=== PATIENT | female | born 1980 | race Caucasian/White ===

== ENCOUNTER 2024-03-01 20:53 | Emergency (ER) | payer OTHER, SELFPAY ==
[2024-03-01 20:56] VITALS: BP 142/92
[2024-03-01 21:15] LABS: % Eosinophils 10.8 % (0-6); % Immature Granulocytes 0.2 % (0-0.5); % Lymphocytes 45.9 % (20.5-51.1); % Monocytes 8.3 % (1.7-9.3); % Neutrophils 33.8 % (42.2-75.2); Absolute Basophils 0.1 10^3/uL (0-0.2); Absolute Eosinophils 0.6 10^3/uL (0-0.7); Absolute Lymphocytes 2.4 10^3/uL (1.2-3.4); Absolute Monocytes 0.4 10^3/uL (0.1-0.6); Absolute Neutrophils 1.8 10^3/uL (1.4-6.5); Hematocrit 40.2 % (37.0-47.0); Hemoglobin 13.4 g/dL (12.0-16.0); Mean Corp Hgb Conc. 33.3 g/dL (33.0-37.0); Mean Corpuscular Volume 90.1 fL (81.0-99.0); Mean Platelet Volume 9.1 fL (7.4-10.4); Nucleated Red Blood Cells % 0 %; Platelet Count 314 10^3/uL (130-400); Red Blood Cell Count 4.46 10^6/uL (4.20-5.40); Red Cell Dist. Width 13.4 % (11.5-14.5); White Blood Cell Count 5.2 10^3/uL (4.8-10.8)
[2024-03-01 21:32] LABS: HCG, Serum Qualitative Screen Negative
[2024-03-01 21:36] LABS: ALT (SGPT) 24 U/L (0-35); AST (SGOT) 36 U/L (14-36); Albumin 4.4 g/dl (3.5-5.0); Alkaline Phosphatase 69 U/L (38-126); Blood Urea Nitrogen 6 mg/dl (7-17); Calcium 9.5 mg/dl (8.4-10.2); Carbon Dioxide 25 mmol/L (22-30); Chloride 103 mmol/L (98-107); Glucose 95 mg/dl (70-99); Potassium 3.9 mmol/L (3.5-5.1); Sodium 137 mmol/L (135-145); Total Bilirubin 1.1 mg/dl (0.2-1.3); Total Protein 6.9 g/dl (6.3-8.2); eGFR > 60.00
--- NOTE | 2024-03-01 22:51 | ED.GENMED ---
History of Present Illness
General
Chief Complaint: Withdrawal Symptoms
Source: patient
Exam Limitations: none
Time Seen by Provider: 03/01/24 22:23
Nursing documentation reviewed up to this point in time: agreed with
Travel History
Have you had any contact with someone who has COVID-19?: No
Do you have any symptoms of coronavirus? Fever > 100 degrees, chills, cough, shortness of breath, sore throat, loss of taste or smell, muscle aches, or headache?: No
History of Present Illness
History of Present Illness:
This is a 43-year-old woman who has longstanding history of generalized anxiety disorder, has been maintained on Klonopin for many years. She follows with psychiatry services at [facility].
Patient states she is maintained on Klonopin 1 mg twice daily and according to PDMP she receives prescriptions for Klonopin 1 mg tablets, number 30 tablets every 3 weeks with last prescription on PDMP January 31.
Patient states she ran out of her Klonopin just 3 days ago and her next appointment with her psychiatrist at [facility] is March 14.
She states that it has been many years since she inadvertently ran out of her Klonopin and she did call her psychiatrist office today and a prescription was planned to be called in for her but then states she was told according to policy, the
prescription was being reviewed by a equipment records supervisor.
She denies drug or alcohol use.
She admits to feeling somewhat anxious, mildly achy but no loss of consciousness, no fever no chills, no nausea or vomiting, no diarrhea nor constipation.
Review of records reveals only 1 previous ED visit for similar complaint December 2020.
Past History
Past History
ED Past Medical History: HTN, Psychiatric (anxiety, ADHD, Depression.) and Other (IBS, chronic gallbladder infection, biliary drain)
ED Past Surgical History: Gynecological (D&E), Orthopedic (R knee surg) and Other (cholecystotomy tube)
Social History
Tobacco: Smoker
Alcohol: None
Drug: Marijuana
Personal: Single
Living: alone
Employment: Not employed
Family History
Family History: CAD
Phy Exam
Physical Exam
Physical Exam:
GENERAL: 43-year-old woman appears her stated age, awake and alert, very minimally anxious but easily communicative. Normal speech pattern.
EYE: anicteric
NECK: Supple, nontender, no meningismus, no significant adenopathy.
ENT: oral mucosa is moist. No rhinorrhea.
CARDIAC: Regular rate and rhythm. no murmur.
LUNGS: Clear breath sounds bilaterally, no acute respiratory distress, no wheezes/rales/rhonchi
ABDOMEN: Soft, nondistended, without focal tenderness, normoactive BS.
NEUROLOGICAL: Alert and oriented x3, no focal neuro deficits. No tremor. Gait is harding and steady.
SKIN: Warm and dry, normal color, skin intact. No rash.
MUSCULOSKELETAL: No C/C/E. peripheral pulses are full and equal b/l. No palpable tenderness.
PSYCH: Mildly anxious. Easily communicative.
Course
Orders/Labs/Results
Orders:
Orders
03/01/24 20:59
Test Result ONCE
03/01/24 21:03
Complete Blood Count/With Diff Urgent
Comprehensive Metabolic Panel Urgent
HCG, Serum Qualitative Screen Urgent
03/01/24 22:50
Clonazepam [Klonopin] 1 mg PO NOW STA
Abnormal Lab Results
03/01/24
21:03
Neutrophils % 33.8 L %
(42.2-75.2)
Eosinophils % 10.8 H %
(0-6)
BUN 6 L mg/dl
(7-17)
03/01/24 21:03
03/01/24 21:03
Vital Signs
Initial and Last Documented VS:
Initial Vital Signs
Temp Pulse Resp BP Pulse Ox
98.0 F 70 16 142/92 99
03/01/24 20:56 03/01/24 20:56 03/01/24 20:56 03/01/24 20:56 03/01/24 20:56
Last Documented Vital Signs
Temp Pulse Resp BP Pulse Ox
98.0 F 70 16 142/92 99
03/01/24 20:56 03/01/24 20:56 03/01/24 20:56 03/01/24 20:56 03/01/24 20:56
MDM/Problems Addressed
Differential Diagnosis Includes:
Patient presents with mild benzodiazepine withdrawal after inadvertently running out of her Klonopin 3 days ago.
Follows regularly with [facility] psychiatric services.
PDMP consistent with patient's history and there is no evidence of additional/early klonopin prescriptions.
Labs are unremarkable.
Clinical exam is unremarkable. No evidence of toxidrome nor significant withdrawal symptomatology.
Will give a one-time dose of Klonopin now and I have offered a short prescription for 10 pills to get her through the weekend and early next week with plan for prompt follow-up with her psychiatrist/telephone call to psychiatrist on Monday.
Patient agreeable with this plan, appreciative as well, and she plans to take Klonopin just once daily to help her get through till her next appointment.
Chronic conditions affecting care: Psychiatric illness
*Pulse Oximetry
Patient hypoxic: no
*Critical Care Note
Total Time (30-74mins, 75-104mins- exclusive of procedures): Not Applicable
ED Attending Note
-
Portions of this chart may have been created with voice recognition software.� Occasional wrong word or��sound alike� substitutions may have occurred due to the inherent limitations of voice recognition software.
Discharge Plan
Departure
Patient Disposition: Home (Routine Discharge)
Date of Disposition: 03/01/24
Time of Disposition: 22:53
Patient with high blood pressure during this ER visit?: No
Discharge Problem:
mild benzodiazepine withdrawal, JUDITH (generalized anxiety disorder)
Instructions: Anxiety, Adult (DC), Prescription Benzodiazepine Use Disorder ED
Prescriptions:
New
clonazepam [Klonopin] 1 mg tablet
1 mg PO DAILY Qty: 10 0RF
No Action
clonazepam 1 MG tablet
1 mg PO BID Qty: 8 0RF
Patient Comments:
08/05/2021: last filled 06/27/21, 60 tabs for 30 days from [facility]#[id number]
docusate sodium 100 MG capsule
100 mg PO BIDPRN PRN (Reason: constipation)
fluoxetine 20 MG capsule
40 mg PO DAILY Qty: 60 0RF
lamotrigine [Lamictal] 200 MG tablet
200 mg PO DAILY
quetiapine [Seroquel] 200 MG tablet
200 mg PO BID
oxycodone 5 MG tablet
5 mg PO Q4HPRN PRN (Reason: moderate pain)
Patient Comments:
08/05/2021: last filled 07/09/21, 20 tabs for 4 days from [facility]#[id number]
aripiprazole 10 MG tablet
5 mg PO HS
Referrals:
[facility] [Outside] - Call in 1-3 days for appt
Interventions
Interventions:
*Risk Screen - Suicide Last Done: 03/01/24 20:56
*General Assessment Last Done: 03/01/24 20:56
*Neglect/Abuse Screening Last Done: 03/01/24 20:56
*ED COVID-19 Vaccine History Last Done: 03/01/24 22:35
*Nursing Disposition Last Done: 03/01/24 23:14
ED-Psychological Assessment Last Done: 03/01/24 22:35
ED- Neurological Assessment Last Done: 03/01/24 22:35
Discharge Date and Time
Discharge Date/Time: 03/01/24 23:15
Print Language: KYRGYZ
[2024-03-01] MEDS: KLONOPIN 1 MG PO (23:08)
== END 2024-03-01 23:15 | disposition home or self-care (01) ==
LOC: EMR 20:53
PROVIDERS: Emergency Medicine; EMERGENCY PHYSICIAN Emergency Medicine
DX: F13.239 Sedative, hypnotic or anxiolytic dependence with withdrawal, unspecified (principal); F41.1 Generalized anxiety disorder; M79.10 Myalgia, unspecified site; T42.4X5A Adverse effect of benzodiazepines, initial encounter; I10 Essential (primary) hypertension; F90.9 Attention-deficit hyperactivity disorder, unspecified type; F32.A Depression, unspecified; K58.9 Irritable bowel syndrome, unspecified; F17.210 Nicotine dependence, cigarettes, uncomplicated; Z79.899 Other long term (current) drug therapy; Z86.19 Personal history of other infectious and parasitic diseases; Z90.49 Acquired absence of other specified parts of digestive tract; Z91.018 Allergy to other foods
CPT/HCPCS: 99283; 80053; 84703; 85025

== ENCOUNTER 2025-08-22 12:36 | Emergency (ER) | payer OTHER, SELFPAY ==
[2025-08-22 12:40] VITALS: BP 142/96
[2025-08-22 13:22] LABS: HCG, Serum Qualitative Screen Negative
[2025-08-22 13:23] LABS: Hematocrit 35.1 % (37.0-47.0); Hemoglobin 11.2 g/dL (12.0-16.0); Mean Corp Hgb Conc. 31.9 g/dL (33.0-37.0); Mean Corpuscular Volume 87.1 fL (81.0-99.0); Nucleated Red Blood Cells % 0 %; Platelet Count 327 10^3/uL (130-400); Red Cell Dist. Width 15.5 % (11.5-14.5)
[2025-08-22 13:27] LABS: ALT (SGPT) 18 U/L (0-35); AST (SGOT) 26 U/L (14-36); Albumin 4.3 g/dl (3.5-5.0); Alkaline Phosphatase 51 U/L (38-126); Blood Urea Nitrogen 8 mg/dl (7-17); Calcium 9.3 mg/dl (8.4-10.2); Carbon Dioxide 28 mmol/L (22-30); Chloride 99 mmol/L (98-107); Glucose 93 mg/dl (70-99); Potassium 4.4 mmol/L (3.5-5.1); Sodium 137 mmol/L (135-145); Total Protein 6.8 g/dl (6.3-8.2); eGFR > 60.00
[2025-08-22 13:57] VITALS: BMI 24.7
--- NOTE | 2025-08-22 14:31 | ED.GENMED ---
History of Present Illness
General
Chief Complaint: Withdrawal Symptoms
Time Seen by Provider: 08/22/25 14:12
History of Present Illness
History of Present Illness:
45-year-old woman with history of generalized anxiety disorder presenting to the emergency department with concerns for running out of her Klonopin. Patient states that she had an appointment with [facility] however her phone did not work
so she was unable to see them for her regular scheduled appointment where she was post to get her refill of her Klonopin. She last had her Klonopin 24 hours ago. She does have a mild headache which is the beginnings of her withdrawal. Her neck
scheduled appointment is August 26. Patient denies taking any extra doses. No chest pain. No shortness of breath. No nausea vomiting. The headache is manageable. Suspect the beginnings of her withdrawal. Denies any other drug or alcohol use.
Past History
Past History
ED Past Medical History: HTN, Psychiatric (anxiety, ADHD, Depression.) and Other (IBS, chronic gallbladder infection, biliary drain)
ED Past Surgical History: Gynecological (D&E), Orthopedic (R knee surg) and Other (cholecystotomy tube)
Social History
Tobacco: Smoker
Alcohol: None
Drug: Marijuana
Personal: Single
Living: alone
Employment: Not employed
Family History
Family History: CAD
Phy Exam
Physical Exam
Physical Exam:
GENERAL: in no acute distress
HEENT: normocephalic, extraocular movements intact, moist oral mucosa
NECK: normal inspection
RESPIRATORY: no respiratory distress, clear to auscultation bilaterally
CARDIOVASCULAR: regular rate and rhythm
ABDOMEN/: soft, non-distended, non-tender to palpation, no rebound or guarding
EXTREMITIES: non-tender, no edema/swelling
NEUROLOGIC: awake and alert, moves all extremities
SKIN: warm
Course
Orders/Labs/Results
Orders:
Orders
08/22/25 12:43
Test Result ONCE
08/22/25 12:47
CBC/With Diff [Complete Blood Count/With Diff] Urgent
Comprehensive Metabolic Panel Urgent
HCG, Serum Qualitative Screen Urgent
08/22/25 14:27
Clonazepam [Klonopin] 1 mg PO NOW STA
Abnormal Lab Results
08/22/25
12:47
RBC 4.03 L 10^6/uL
(4.20-5.40)
Hgb 11.2 L g/dL
(12.0-16.0)
Hct 35.1 L %
(37.0-47.0)
MCHC 31.9 L g/dL
(33.0-37.0)
RDW 15.5 H %
(11.5-14.5)
Neutrophils % 40.6 L %
(42.2-75.2)
Eosinophils % 6.8 H %
(0-6)
08/22/25 12:47
08/22/25 12:47
Vital Signs
Initial and Last Documented VS:
Initial Vital Signs
Temp Pulse Resp BP Pulse Ox
98.4 F 89 16 142/96 98
08/22/25 12:40 08/22/25 12:40 08/22/25 12:40 08/22/25 12:40 08/22/25 12:40
Last Documented Vital Signs
Temp Pulse Resp BP Pulse Ox
98.4 F 51 13 142/96 98
08/22/25 12:40 08/22/25 14:06 08/22/25 14:06 08/22/25 12:40 08/22/25 12:40
MDM/Problems Addressed
Differential Diagnosis Includes:
Patient is a 45-year-old woman with history of generalized anxiety disorder presenting to the emergency department after she ran out of her Klonopin in the setting of missing her appointment for a refill. On arrival patient vital signs are
unremarkable. Exam is reassuring. She does appear to be going through mild withdrawal the patient states it is manageable. I did discuss with Kenji march who states that in fact she did miss her appointment and does have a scheduled
appointment for August 26. Per PE and DP review she was given a 15-day fill that did run out. I will give her 1 dose here and then give her enough to get to her appointment on August 26. All questions answered. Will discharge patient at this
time.
*Pulse Oximetry
SaO2: 98
Oxygen Mode of Delivery: Room air
Patient hypoxic: no
*Critical Care Note
Total Time (30-74mins, 75-104mins- exclusive of procedures): Not Applicable
ED Attending Note
-
Portions of this chart may have been created with voice recognition software.� Occasional wrong word or��sound alike� substitutions may have occurred due to the inherent limitations of voice recognition software.
Discharge Plan
Departure
Patient Disposition: Home (Routine Discharge)
Date of Disposition: 08/22/25
Time of Disposition: 14:27
Patient with high blood pressure during this ER visit?: No
Discharge Problem:
mild benzodiazpene withdrawal, Generalized anxiety disorder
Instructions: Anxiety, Adult (DC)
Prescriptions:
New
clonazepam [Klonopin] 1 mg tablet
1 mg PO BID Qty: 8 0RF
No Action
clonazepam 1 MG tablet
1 mg PO BID Qty: 8 0RF
Patient Comments:
08/05/2021: last filled 06/27/21, 60 tabs for 30 days from [facility]#[id number]
docusate sodium 100 MG capsule
100 mg PO BIDPRN PRN (Reason: constipation)
fluoxetine 20 MG capsule
40 mg PO DAILY Qty: 60 0RF
lamotrigine [Lamictal] 200 MG tablet
200 mg PO DAILY
quetiapine [Seroquel] 200 MG tablet
200 mg PO BID
oxycodone 5 MG tablet
5 mg PO Q4HPRN PRN (Reason: moderate pain)
Patient Comments:
08/05/2021: last filled 07/09/21, 20 tabs for 4 days from [id number]
aripiprazole 10 MG tablet
5 mg PO HS
clonazepam [Klonopin] 1 mg tablet
1 mg PO DAILY Qty: 10 0RF
Activity Restrictions/Additional Instructions:
You were seen in the Emergency Department today. I did prescribe you with enough Klonopin to get you through September 02. Please make sure you keep your appointment with [facility]
We would like for you to follow up with your primary care physician for further evaluation. If you experience fever, worsening of your symptoms, or develop any other new or concerning symptoms, please return to the Emergency Department immediately.
Please see the attached sheet for additional information.
Interventions
Interventions:
*Risk Screen - Suicide Last Done: 08/22/25 12:40
*General Assessment Last Done: 08/22/25 13:58
*Neglect/Abuse Screening Last Done: 08/22/25 12:40
*ED- Fall Risk Assessment Last Done: 08/22/25 13:58
*ED COVID-19 Vaccine History Last Done: 08/22/25 13:58
*ED Influenza Vaccine History Last Done: 08/22/25 13:58
ED- Neurological Assessment Last Done: 08/22/25 13:56
ED-Psychological Assessment Last Done: 08/22/25 13:56
Discharge Date and Time
Print Language: VINCENTIAN
[2025-08-22] MEDS: KLONOPIN 1 MG PO (14:50)
== END 2025-08-22 14:57 | disposition home or self-care (01) ==
LOC: EMR 12:36
PROVIDERS: Emergency Medicine; EMERGENCY PHYSICIAN Student in an Organized Health Care Education/Training Program
DX: F13.239 Sedative, hypnotic or anxiolytic dependence with withdrawal, unspecified (principal); F41.1 Generalized anxiety disorder; I10 Essential (primary) hypertension; K58.9 Irritable bowel syndrome, unspecified; F17.200 Nicotine dependence, unspecified, uncomplicated; Z82.49 Family history of ischemic heart disease and other diseases of the circulatory system
CPT/HCPCS: 99283; 80053; 84703; 85025